=== PATIENT | male | born 1955 | race Caucasian/White ===

== ENCOUNTER 2023-10-19 07:23 | Day surgery (SDC) | payer MEDICARE ==
[~2023-10-19] VITALS: Ht 167.6 cm; Wt 70.3 kg
[2023-10-19] VITALS (11 sets, daily range): BP systolic 103–147; BP diastolic 69–80; PULSE 42–56; RESP 14–17
[~2023-10-19 07:23] MED LIST: 0.9%NACL 1000ML 1,000 ML IV ONE; SUCR1TAB2 PO
[2023-10-19] MEDS: 0.9%NACL 1000ML 1,000 ML IV ONE (08:41)
[2023-10-19] MEDS ORDERED: PROPOFOL 10 MG/ML 20ML VIAL IV ONE ×2 (10:01→10:27)
[2023-10-19] MEDS ORDERED: LIDOCAINE HCL 1% 20 ML VIAL ONE (10:01)
== END 2023-10-19 11:45 | disposition home or self-care (01) ==
LOC: DAH 07:23 → ENDO 07:23
PROVIDERS: ATTEND Internal Medicine Gastroenterology
DX: R93.3 Abnormal findings on diagnostic imaging of other parts of digestive tract (principal); K22.2 Esophageal obstruction; K29.50 Unspecified chronic gastritis without bleeding; K31.7 Polyp of stomach and duodenum; K22.89 Other specified disease of esophagus; K26.9 Duodenal ulcer, unspecified as acute or chronic, without hemorrhage or perforation; K92.1 Melena; K64.8 Other hemorrhoids; K59.00 Constipation, unspecified; C61 Malignant neoplasm of prostate; E05.90 Thyrotoxicosis, unspecified without thyrotoxic crisis or storm; Z79.899 Other long term (current) drug therapy
CPT/HCPCS: 43242; 43251; 43239; J7030; J2704 ×2; A4620; A4215 ×2; A4223; A7002; A4222; A4221; A4663; A4606; J3490